=== PATIENT | male | born 1960 | race Caucasian/White ===

== ENCOUNTER 2016-12-23 11:06 | Emergency (ER) | payer OTHER, BC ==
--- NOTE | 2016-12-23 11:27 | ERNOTE ---
Medical Problem HPI - Narrative Date of Service: 12/23/16 - General Chief Complaint: Laceration Time Seen by Provider: 12/23/16 11:23 - Immun/Allergies/Home Medications Immunizations: IMMUNIZATION HX Immunizations Up to Date Yes Allergies/Adverse Reactions: Allergies No Known Allergies Allergy (Unverified 10/09/15 07:14) Home Medications: HOME MEDICATIONS Felodipine [Felodipine ER] 10 mg PO DAILY 09/27/15 [Last Taken Unknown] - History of Present History Narrative: CUT R. 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 All Other Systems: All systems neg except as marked - Patient's Past Medical History Patient History - Medical: No pertinent hx Patient History - Cardiac/Respiratory: Hypertension Patient History - Cancer: No Hx of Cancer Patient History - Surgical Procedures: No surgical history Patient History - Other: None - Family History Father Family History - Medical: Family History - Cardiac/Respiratory: Hypertension, Other Mother Family History - Medical: Arthritis, Diabetes Type 2 Family History - Cardiac/Respiratory: Hypertension - Social History Living Situations: spouse Abuse History: No History of abuse Psych History: Hx of Depression Smoking Status: Never smoker Alcohol Use: none Drug Use: none - Immunizations Immunizations Up to Date: No - LAST TETANUS = 2003 Physical Exam - Physical Exam General Appearance: Present: wd/wn, alert, no apparent distress Extremity Exam: Present: normal except -, other - PT WITHDIAGONAL 2.5 CM LACERATION TO DORSUM OF RIGHT INDEX FINGER, OVERLYING FIRST METACAPAL. NO JOINT INVOLVEMENT. NORMAL ROM AND REFILL AND SENSATION DISTALLY. Neurological Exam: Present: alert, oriented ED Progress - Vital Signs Patient's Vital Signs:: I have reviewed the patient's vital signs. Vital Signs: Vital Signs 12/23/16 11:12 Temperature 37 C Pulse Rate 54 L Respiratory 16 Rate Blood Pressure 135/73 O2 Sat by Pulse 98 Oximetry - X-Ray X-Ray #1 X-Ray: finger - R INDEX FINGER = NEG FOR FOREIGN BODY OR FX /DISLOCATION. - Progress/Reassessment Chief Complaint: Laceration Procedures Right Finger 2nd Digit Anesthesia: 1% Lidocaine I & D Prep: other - CLEANSED WITH STERILE SALINE. Wound's Depth/Shape: into subcutaneous Wound Explored: clean, no foreign body Wound Intervention: irrigated w/saline Distal NVT: neuro/vasc intact, no tendon injury Wound Repaired With: sutures Suture Size/Type: 4-0, nylon Number of Sutures: 5 Layer Closure: Simple Wound Dressing: sterile dressing applied Complications: Pt tanvir procedure well Departure - Departure Clinical Impression: Laceration of index finger of right hand without complication Disposition: Home Follow Up Needed Condition: Good Instructions: Laceration Care, Adult, [id number] Referrals: Julio Espinal MD [Primary Care Provider] -
[2016-12-23] MEDS ORDERED: DIPHTH,PERTUSS(ACELL),TET VAC 0.5 ML VIAL IM ONE ×2 (11:32→11:44)
[2016-12-23] MEDS ORDERED: TETANUS AND DIPHTHERIA TOXOID 0.5 ML SYRG IM ONE (11:42)
[2016-12-23 11:56] VITALS: BP 103/67
== END 2016-12-23 12:29 | disposition home or self-care (01) ==
LOC: ER 11:06
PROC: 0JQJ0ZZ Repair Right Hand Subcutaneous Tissue and Fascia, Open Approach (ICD-10-PCS; principal; 2016-12-23)
DX: S61.210A Laceration without foreign body of right index finger without damage to nail, initial encounter (principal); W45.8XXA Other foreign body or object entering through skin, initial encounter; Y93.89 Activity, other specified; Y92.69 Other specified industrial and construction area as the place of occurrence of the external cause; Y99.0 Civilian activity done for income or pay; Z23 Encounter for immunization